=== PATIENT | male | born 1965 | race Two or more races ===

== ENCOUNTER 2023-02-13 11:24 | Inpatient (IN) | payer OTHER ==
[2023-02-13 12:09] VITALS: BMI 29.5
[2023-02-13] MEDS ORDERED: ONDANSETRON *ODT* 4 MG TABLET SL PRN (12:54)
[2023-02-13] MEDS ORDERED: NALOXONE HCL 0.4 MG/ML VIAL IM PRN (12:54)
[2023-02-13] MEDS ORDERED: METHOCARBAMOL 500 MG TABLET PO PRN (12:54)
[2023-02-13] MEDS ORDERED: BENZONATATE 200 MG CAPSULE PO PRN (12:54)
[2023-02-13] MEDS ORDERED: MAG HYDROX/AL HYDROX/SIMETH 30 ML UNIT-DOSE CUP PO PRN (12:54)
[2023-02-13] MEDS ORDERED: ACETAMINOPHEN 325 MG TABLET (FP) PO PRN (12:54)
[2023-02-13] MEDS ORDERED: POLYETHYLENE GLYCOL (HEALTHYLAX) 3350 17 GM PACKET PO PRN (12:54)
[2023-02-13] MEDS ORDERED: guaiFENesin 600 MG TABLET.ER (FP) PO PRN (12:54)
[2023-02-13] MEDS ORDERED: MAGNESIUM HYDROX 2400MG/30ML ORAL SUSPENSION 30 ML CUP PO PRN (12:54)
[2023-02-13] MEDS ORDERED: IBUPROFEN 600 MG TABLET (FP) PO PRN (12:54)
[2023-02-13] MEDS ORDERED: BISMUTH SUBSALICYLATE 524 MG/30 ML PO PRN (12:54)
[2023-02-13] MEDS ORDERED: LOPERAMIDE HCL 2 MG CAPSULE PO PRN (12:54)
[2023-02-13] MEDS ORDERED: BENZOCAINE/MENTHOL (CHLORASEPTIC ) LOZENGE MM PRN (12:54)
[2023-02-13] MEDS ORDERED: NALOXONE HCL (KLOXXADO) 8 MG SPRAY NS PRN (12:54)
[2023-02-13] MEDS ORDERED: DICYCLOMINE HCL 10 MG CAPSULE PO PRN (12:54)
[2023-02-13] MEDS ORDERED: LORazepam 1 MG TABLET PO PRN (12:54)
[2023-02-13] MEDS ORDERED: IBUPROFEN 400 MG TABLET (FP) PO PRN (12:54)
[2023-02-13] MEDS ORDERED: PRENATAL VITAMINS W/ FOLIC ACID TABLET (FP) PO ONE (14:03)
[2023-02-13] MEDS: NICOTINE 14 MG/24 HOURS TOPICAL PATCH TD SCH (14:11)
[2023-02-13] MEDS: PRENATAL VITAMINS W/ FOLIC ACID TABLET (FP) PO SCH (14:12)
[2023-02-13] MEDS: LORazepam 2 MG TABLET PO SCH ×2 (17:22→22:11)
[2023-02-13] MEDS ORDERED: MELATONIN 5 MG TABLETS PO SCH (22:00)
[2023-02-13] MEDS: THIAMINE HCL 100 MG TABLET (FP) PO SCH (22:11)
[2023-02-14] MEDS: LORazepam 2 MG TABLET PO SCH ×4 (05:35→23:34)
[2023-02-14] MEDS: PRENATAL VITAMINS W/ FOLIC ACID TABLET (FP) PO SCH (10:32)
[2023-02-14] MEDS: BUPRENORPHINE/NALOXONE 8 MG/2 MG FILM PACKET SL SCH (10:32)
[2023-02-14] MEDS: NICOTINE 14 MG/24 HOURS TOPICAL PATCH TD SCH (10:33)
[2023-02-14 11:54] LABS: HEMATOCRIT 42.4 % (35.4-49); HEMOGLOBIN 14.5 GM/dL (11.7-16.9); MCHC 34.1 g/dl (32.0-35.9); MEAN CELL VOLUME 93.7 fl (80-96); MEAN PLT VOLUME 9.1 fl (7.5-11.1); PLATELET COUNT 195 10^3/uL (134-434); RBC 4.52 M/mm3 (4.00-5.60); RDW 13.2 % (11.9-15.9); WHITE BLOOD COUNT 6.5 K/mm3 (4.0-10.0)
[2023-02-14 11:58] LABS: POTASSIUM 4.1 mmol/L (3.5-5.1)
[2023-02-14 12:00] LABS: ALBUMIN 3.8 g/dl (3.4-5.0)
[2023-02-14 12:03] LABS: CREATININE 0.9 mg/dL (0.55-1.3)
[2023-02-14 12:05] LABS: BILIRUBIN,TOTAL 1.3 mg/dL (0.2-1); TOT PROT 7.3 g/dl (6.4-8.2)
[2023-02-14] MEDS: hydrOXYzine PAMOATE 25 MG CAPSULE (FP) PO PRN (12:11)
[2023-02-14] MEDS: valACYclovir HCL 500 MG TABLET (FP) PO SCH (14:13)
[2023-02-14] MEDS: BICTEGRAV/EMTRICIT/TENOFOV (BIKTARVY) 50-200-25 MG TABLET PO SCH (14:14)
[2023-02-14] MEDS: THIAMINE HCL 100 MG TABLET (FP) PO SCH (22:06)
[2023-02-14] MEDS: ATORVASTATIN CA 40 MG TABLET (FP) PO SCH (22:08)
[2023-02-14] MEDS: SUVOREXANT 10 MG TABLET PO PRN (22:11)
[2023-02-15] MEDS: LORazepam 1 MG TABLET PO SCH ×4 (05:32→22:13)
[2023-02-15] MEDS: BICTEGRAV/EMTRICIT/TENOFOV (BIKTARVY) 50-200-25 MG TABLET PO SCH (07:39)
[2023-02-15] MEDS: valACYclovir HCL 500 MG TABLET (FP) PO SCH (10:04)
[2023-02-15] MEDS: PRENATAL VITAMINS W/ FOLIC ACID TABLET (FP) PO SCH (10:04)
[2023-02-15] MEDS: NICOTINE 14 MG/24 HOURS TOPICAL PATCH TD SCH (10:04)
[2023-02-15] MEDS: BUPRENORPHINE/NALOXONE 8 MG/2 MG FILM PACKET SL SCH (10:04)
[2023-02-15] MEDS: hydrOXYzine PAMOATE 25 MG CAPSULE (FP) PO PRN (13:00)
[2023-02-15] MEDS: THIAMINE HCL 100 MG TABLET (FP) PO SCH (22:13)
[2023-02-15] MEDS: ATORVASTATIN CA 40 MG TABLET (FP) PO SCH (22:15)
[2023-02-16] MEDS ORDERED: LORazepam 0.5 MG TABLET PO PRN
[2023-02-16] MEDS: LORazepam 0.5 MG TABLET PO SCH ×4 (05:08→22:11)
[2023-02-16] MEDS: BICTEGRAV/EMTRICIT/TENOFOV (BIKTARVY) 50-200-25 MG TABLET PO SCH (07:14)
[2023-02-16] MEDS: valACYclovir HCL 500 MG TABLET (FP) PO SCH (10:01)
[2023-02-16] MEDS: PRENATAL VITAMINS W/ FOLIC ACID TABLET (FP) PO SCH (10:01)
[2023-02-16] MEDS: NICOTINE 14 MG/24 HOURS TOPICAL PATCH TD SCH (10:02)
[2023-02-16] MEDS: BUPRENORPHINE/NALOXONE 8 MG/2 MG FILM PACKET SL SCH (10:04)
[2023-02-16 10:45] LABS: CHOLESTEROL 98 mg/dL (50-200)
[2023-02-16 10:46] LABS: LDL CHOLESTEROL (ONLY SJRH) 53 mg/dL (5-100)
[2023-02-16 10:49] LABS: HDL CHOLESTEROL 35 mg/dL (40-60)
[2023-02-16 21:05] VITALS: RESP 16
[2023-02-16] MEDS: ATORVASTATIN CA 40 MG TABLET (FP) PO SCH (22:11)
[2023-02-16] MEDS: THIAMINE HCL 100 MG TABLET (FP) PO SCH (22:11)
[2023-02-16] MEDS: SUVOREXANT 10 MG TABLET PO PRN (22:13)
[2023-02-17] MEDS ORDERED: LORazepam 0.5 MG TABLET PO ONE (05:00)
[2023-02-17] MEDS: BICTEGRAV/EMTRICIT/TENOFOV (BIKTARVY) 50-200-25 MG TABLET PO SCH (07:53)
[2023-02-17] MEDS: valACYclovir HCL 500 MG TABLET (FP) PO SCH (09:52)
[2023-02-17] MEDS: PRENATAL VITAMINS W/ FOLIC ACID TABLET (FP) PO SCH (09:52)
[2023-02-17] MEDS: NICOTINE 14 MG/24 HOURS TOPICAL PATCH TD SCH (09:53)
[2023-02-17] MEDS: BUPRENORPHINE/NALOXONE 8 MG/2 MG FILM PACKET SL SCH (09:53)
[2023-02-17 09:58] VITALS: BP 108/58; PULSE 63; TEMP 97.1
== END 2023-02-17 09:56 | disposition home or self-care (01) | DRG 773 ==
LOC: YASAS 11:24 → Y6N 14:39
PROVIDERS: ADMIT Allergy & Immunology; ATTEND Surgery
PROC: HZ2ZZZZ Detoxification Services for Substance Abuse Treatment (ICD-10-PCS; principal; 2023-02-13)
DX: F13.230 Sedative, hypnotic or anxiolytic dependence with withdrawal, uncomplicated (principal); F11.20 Opioid dependence, uncomplicated; F12.10 Cannabis abuse, uncomplicated; F17.213 Nicotine dependence, cigarettes, with withdrawal; F19.280 Other psychoactive substance dependence with psychoactive substance-induced anxiety disorder; F19.24 Other psychoactive substance dependence with psychoactive substance-induced mood disorder; I10 Essential (primary) hypertension; E78.2 Mixed hyperlipidemia; Z62.810 Personal history of physical and sexual abuse in childhood; Z86.19 Personal history of other infectious and parasitic diseases; Z86.11 Personal history of tuberculosis; Z87.438 Personal history of other diseases of male genital organs; Z88.0 Allergy status to penicillin
CPT/HCPCS: 36415; 71046-TC-FY; 80053; 80061; 85027; 86593; 86780; 87635; 87811

== ENCOUNTER 2023-04-27 14:03 | Inpatient (IN) | payer OTHER ==
[2023-04-27] MEDS ORDERED: BENZOCAINE/MENTHOL (CHLORASEPTIC ) LOZENGE MM PRN (14:55)
[2023-04-27] MEDS ORDERED: NALOXONE HCL 0.4 MG/ML VIAL IVPUSH PRN (14:55)
[2023-04-27] MEDS ORDERED: BENZONATATE 200 MG CAPSULE PO PRN (14:55)
[2023-04-27] MEDS ORDERED: IBUPROFEN 400 MG TABLET (FP) PO PRN (14:55)
[2023-04-27] MEDS ORDERED: MAGNESIUM HYDROX 2400MG/30ML ORAL SUSPENSION 30 ML CUP PO PRN (14:55)
[2023-04-27] MEDS ORDERED: LOPERAMIDE HCL 2 MG CAPSULE PO PRN (14:55)
[2023-04-27] MEDS ORDERED: POLYETHYLENE GLYCOL (HEALTHYLAX) 3350 17 GM PACKET PO PRN (14:55)
[2023-04-27] MEDS ORDERED: MAG HYDROX/AL HYDROX/SIMETH 30 ML UNIT-DOSE CUP PO PRN (14:55)
[2023-04-27] MEDS ORDERED: guaiFENesin 600 MG TABLET.ER (FP) PO PRN (14:55)
[2023-04-27] MEDS ORDERED: METHOCARBAMOL 500 MG TABLET PO PRN (14:55)
[2023-04-27] MEDS ORDERED: NALOXONE HCL (KLOXXADO) 8 MG SPRAY NS PRN (14:55)
[2023-04-27] MEDS ORDERED: COLLOIDAL OATMEAL 1 BAR EACH TP PRN (14:55)
[2023-04-27] MEDS ORDERED: ACETAMINOPHEN 325 MG TABLET (FP) PO PRN (14:55)
[2023-04-27] MEDS ORDERED: NICOTINE POLACRILEX 2 MG GUM BUC PRN (14:55)
[2023-04-27] MEDS: THIAMINE HCL 100 MG TABLET (FP) PO SCH (21:10)
[2023-04-27] MEDS: MELATONIN 5 MG TABLETS PO SCH (21:10)
[2023-04-27] MEDS: ATORVASTATIN CA 40 MG TABLET (FP) PO SCH (21:10)
[2023-04-28] MEDS: BICTEGRAV/EMTRICIT/TENOFOV (BIKTARVY) 50-200-25 MG TABLET PO SCH (10:18)
[2023-04-28] MEDS: valACYclovir HCL 500 MG TABLET (FP) PO SCH (10:18)
[2023-04-28] MEDS: HYDROCHLOROTHIAZIDE 12.5 MG CAPSULE (FP) PO SCH (10:18)
[2023-04-28] MEDS: PRENATAL VITAMINS W/ FOLIC ACID TABLET (FP) PO SCH (10:18)
[2023-04-28] MEDS: ESCITALOPRAM OXALATE 10 MG TABLET PO SCH (12:05)
[2023-04-28] MEDS: THIAMINE HCL 100 MG TABLET (FP) PO SCH (21:17)
[2023-04-28] MEDS: MELATONIN 5 MG TABLETS PO SCH (21:17)
[2023-04-28] MEDS: MIRTAZAPINE 15 MG TABLET (FP) PO SCH (21:17)
[2023-04-28] MEDS: ATORVASTATIN CA 40 MG TABLET (FP) PO SCH (21:18)
[2023-04-29] MEDS: PRENATAL VITAMINS W/ FOLIC ACID TABLET (FP) PO SCH (09:36)
[2023-04-29] MEDS: BICTEGRAV/EMTRICIT/TENOFOV (BIKTARVY) 50-200-25 MG TABLET PO SCH (09:36)
[2023-04-29] MEDS: HYDROCHLOROTHIAZIDE 12.5 MG CAPSULE (FP) PO SCH (09:37)
[2023-04-29] MEDS: valACYclovir HCL 500 MG TABLET (FP) PO SCH (09:37)
[2023-04-29] MEDS: ESCITALOPRAM OXALATE 10 MG TABLET PO SCH (09:37)
[2023-04-29] MEDS: THIAMINE HCL 100 MG TABLET (FP) PO SCH (21:27)
[2023-04-29] MEDS: MIRTAZAPINE 15 MG TABLET (FP) PO SCH (21:27)
[2023-04-29] MEDS: MELATONIN 5 MG TABLETS PO SCH (21:27)
[2023-04-29] MEDS: ATORVASTATIN CA 40 MG TABLET (FP) PO SCH (21:28)
[2023-04-30] MEDS: PRENATAL VITAMINS W/ FOLIC ACID TABLET (FP) PO SCH (09:57)
[2023-04-30] MEDS: BICTEGRAV/EMTRICIT/TENOFOV (BIKTARVY) 50-200-25 MG TABLET PO SCH (09:57)
[2023-04-30] MEDS: valACYclovir HCL 500 MG TABLET (FP) PO SCH (09:58)
[2023-04-30] MEDS: ESCITALOPRAM OXALATE 10 MG TABLET PO SCH (09:58)
[2023-04-30] MEDS: HYDROCHLOROTHIAZIDE 12.5 MG CAPSULE (FP) PO SCH (09:58)
[2023-04-30] MEDS: MELATONIN 5 MG TABLETS PO SCH (21:09)
[2023-04-30] MEDS: MIRTAZAPINE 15 MG TABLET (FP) PO SCH (21:09)
[2023-04-30] MEDS: ATORVASTATIN CA 40 MG TABLET (FP) PO SCH (21:09)
[2023-04-30] MEDS: THIAMINE HCL 100 MG TABLET (FP) PO SCH (21:09)
[2023-05-01] MEDS: ESCITALOPRAM OXALATE 10 MG TABLET PO SCH (09:29)
[2023-05-01] MEDS: PRENATAL VITAMINS W/ FOLIC ACID TABLET (FP) PO SCH (09:29)
[2023-05-01] MEDS: BICTEGRAV/EMTRICIT/TENOFOV (BIKTARVY) 50-200-25 MG TABLET PO SCH (09:30)
[2023-05-01] MEDS: HYDROCHLOROTHIAZIDE 12.5 MG CAPSULE (FP) PO SCH (09:30)
[2023-05-01] MEDS: valACYclovir HCL 500 MG TABLET (FP) PO SCH (09:30)
[2023-05-01] MEDS ORDERED: guaiFENesin 600 MG TABLET.ER (FP) PO PRN (13:28)
[2023-05-01] MEDS ORDERED: BISMUTH SUBSALICYLATE 524 MG/30 ML PO PRN (13:28)
[2023-05-01] MEDS ORDERED: BENZONATATE 200 MG CAPSULE PO PRN (13:28)
[2023-05-01] MEDS ORDERED: DICYCLOMINE HCL 10 MG CAPSULE PO PRN (13:28)
[2023-05-01] MEDS ORDERED: ONDANSETRON *ODT* 4 MG TABLET SL PRN (13:28)
[2023-05-01] MEDS ORDERED: BUPRENORPHINE HCL 150 MCG FILM BC SCH (14:00)
[2023-05-01] MEDS: ATORVASTATIN CA 40 MG TABLET (FP) PO SCH (21:14)
[2023-05-01] MEDS: THIAMINE HCL 100 MG TABLET (FP) PO SCH (21:14)
[2023-05-01] MEDS: MELATONIN 5 MG TABLETS PO SCH (21:14)
[2023-05-01] MEDS: MIRTAZAPINE 15 MG TABLET (FP) PO SCH (21:14)
[2023-05-01] MEDS: IBUPROFEN 600 MG TABLET (FP) PO PRN (23:14)
[2023-05-02] MEDS: hydrOXYzine PAMOATE 25 MG CAPSULE (FP) PO PRN ×2 (01:24→23:24)
[2023-05-02] MEDS: ESCITALOPRAM OXALATE 10 MG TABLET PO SCH (09:58)
[2023-05-02] MEDS: HYDROCHLOROTHIAZIDE 12.5 MG CAPSULE (FP) PO SCH (09:58)
[2023-05-02] MEDS: PRENATAL VITAMINS W/ FOLIC ACID TABLET (FP) PO SCH (09:58)
[2023-05-02] MEDS: BICTEGRAV/EMTRICIT/TENOFOV (BIKTARVY) 50-200-25 MG TABLET PO SCH (09:58)
[2023-05-02] MEDS: valACYclovir HCL 500 MG TABLET (FP) PO SCH (09:58)
[2023-05-02] MEDS ORDERED: BUPRENORPHINE HCL 150 MCG FILM BC ONE (10:00)
[2023-05-02] MEDS: MELATONIN 5 MG TABLETS PO SCH (21:08)
[2023-05-02] MEDS: MIRTAZAPINE 15 MG TABLET (FP) PO SCH (21:08)
[2023-05-02] MEDS: THIAMINE HCL 100 MG TABLET (FP) PO SCH (21:08)
[2023-05-02] MEDS: ATORVASTATIN CA 40 MG TABLET (FP) PO SCH (21:08)
[2023-05-03] MEDS: PRENATAL VITAMINS W/ FOLIC ACID TABLET (FP) PO SCH (09:36)
[2023-05-03] MEDS: valACYclovir HCL 500 MG TABLET (FP) PO SCH (09:37)
[2023-05-03] MEDS: BUPRENORPHINE HCL 75 MCG FILM BC SCH ×2 (09:37→21:24)
[2023-05-03] MEDS: HYDROCHLOROTHIAZIDE 12.5 MG CAPSULE (FP) PO SCH (09:37)
[2023-05-03] MEDS: BICTEGRAV/EMTRICIT/TENOFOV (BIKTARVY) 50-200-25 MG TABLET PO SCH (09:37)
[2023-05-03] MEDS: ESCITALOPRAM OXALATE 10 MG TABLET PO SCH (09:37)
[2023-05-03] MEDS: ATORVASTATIN CA 40 MG TABLET (FP) PO SCH (21:23)
[2023-05-03] MEDS: MELATONIN 5 MG TABLETS PO SCH (21:23)
[2023-05-03] MEDS: THIAMINE HCL 100 MG TABLET (FP) PO SCH (21:23)
[2023-05-03] MEDS: MIRTAZAPINE 15 MG TABLET (FP) PO SCH (21:23)
[2023-05-04] MEDS: HYDROCHLOROTHIAZIDE 12.5 MG CAPSULE (FP) PO SCH (10:05)
[2023-05-04] MEDS: valACYclovir HCL 500 MG TABLET (FP) PO SCH (10:05)
[2023-05-04] MEDS: PRENATAL VITAMINS W/ FOLIC ACID TABLET (FP) PO SCH (10:05)
[2023-05-04] MEDS: BICTEGRAV/EMTRICIT/TENOFOV (BIKTARVY) 50-200-25 MG TABLET PO SCH (10:05)
[2023-05-04] MEDS: ESCITALOPRAM OXALATE 10 MG TABLET PO SCH (10:05)
[2023-05-04] MEDS: THIAMINE HCL 100 MG TABLET (FP) PO SCH (21:11)
[2023-05-04] MEDS: MIRTAZAPINE 15 MG TABLET (FP) PO SCH (21:11)
[2023-05-04] MEDS: ATORVASTATIN CA 40 MG TABLET (FP) PO SCH (21:11)
[2023-05-04] MEDS: MELATONIN 5 MG TABLETS PO SCH (21:11)
[2023-05-04] MEDS ORDERED: BUPRENORPHINE HCL 75 MCG FILM BC ONE (23:00)
[2023-05-05] MEDS: PRENATAL VITAMINS W/ FOLIC ACID TABLET (FP) PO SCH (09:48)
[2023-05-05] MEDS: BICTEGRAV/EMTRICIT/TENOFOV (BIKTARVY) 50-200-25 MG TABLET PO SCH (09:49)
[2023-05-05] MEDS: valACYclovir HCL 500 MG TABLET (FP) PO SCH (09:49)
[2023-05-05] MEDS: ESCITALOPRAM OXALATE 10 MG TABLET PO SCH (09:49)
[2023-05-05] MEDS: HYDROCHLOROTHIAZIDE 12.5 MG CAPSULE (FP) PO SCH (09:49)
[2023-05-05] MEDS: THIAMINE HCL 100 MG TABLET (FP) PO SCH (21:14)
[2023-05-05] MEDS: MELATONIN 5 MG TABLETS PO SCH (21:14)
[2023-05-05] MEDS: ATORVASTATIN CA 40 MG TABLET (FP) PO SCH (21:14)
[2023-05-05] MEDS: MIRTAZAPINE 15 MG TABLET (FP) PO SCH (21:14)
[2023-05-06] MEDS: HYDROCHLOROTHIAZIDE 12.5 MG CAPSULE (FP) PO SCH (09:52)
[2023-05-06] MEDS: PRENATAL VITAMINS W/ FOLIC ACID TABLET (FP) PO SCH (09:52)
[2023-05-06] MEDS: ESCITALOPRAM OXALATE 10 MG TABLET PO SCH (09:52)
[2023-05-06] MEDS: valACYclovir HCL 500 MG TABLET (FP) PO SCH (09:52)
[2023-05-06] MEDS: BICTEGRAV/EMTRICIT/TENOFOV (BIKTARVY) 50-200-25 MG TABLET PO SCH (09:52)
[2023-05-06] MEDS: ATORVASTATIN CA 40 MG TABLET (FP) PO SCH (21:21)
[2023-05-06] MEDS: MELATONIN 5 MG TABLETS PO SCH (21:21)
[2023-05-06] MEDS: MIRTAZAPINE 15 MG TABLET (FP) PO SCH (21:21)
[2023-05-06] MEDS: THIAMINE HCL 100 MG TABLET (FP) PO SCH (21:21)
[2023-05-07] MEDS: IBUPROFEN 600 MG TABLET (FP) PO PRN (00:02)
[2023-05-07] MEDS: hydrOXYzine PAMOATE 25 MG CAPSULE (FP) PO PRN (00:04)
[2023-05-07] MEDS: valACYclovir HCL 500 MG TABLET (FP) PO SCH (09:54)
[2023-05-07] MEDS: PRENATAL VITAMINS W/ FOLIC ACID TABLET (FP) PO SCH (09:55)
[2023-05-07] MEDS: ESCITALOPRAM OXALATE 10 MG TABLET PO SCH (09:55)
[2023-05-07] MEDS: HYDROCHLOROTHIAZIDE 12.5 MG CAPSULE (FP) PO SCH (09:55)
[2023-05-07] MEDS: BICTEGRAV/EMTRICIT/TENOFOV (BIKTARVY) 50-200-25 MG TABLET PO SCH (09:55)
[2023-05-07] MEDS: ATORVASTATIN CA 40 MG TABLET (FP) PO SCH (21:08)
[2023-05-07] MEDS: MELATONIN 5 MG TABLETS PO SCH (21:08)
[2023-05-07] MEDS: MIRTAZAPINE 15 MG TABLET (FP) PO SCH (21:08)
[2023-05-07] MEDS: THIAMINE HCL 100 MG TABLET (FP) PO SCH (21:08)
[2023-05-08] MEDS: BICTEGRAV/EMTRICIT/TENOFOV (BIKTARVY) 50-200-25 MG TABLET PO SCH (10:10)
[2023-05-08] MEDS: PRENATAL VITAMINS W/ FOLIC ACID TABLET (FP) PO SCH (10:10)
[2023-05-08] MEDS: valACYclovir HCL 500 MG TABLET (FP) PO SCH (10:10)
[2023-05-08] MEDS: ESCITALOPRAM OXALATE 10 MG TABLET PO SCH (10:10)
[2023-05-08] MEDS: HYDROCHLOROTHIAZIDE 12.5 MG CAPSULE (FP) PO SCH (10:10)
[2023-05-08] MEDS: IBUPROFEN 600 MG TABLET (FP) PO PRN (10:12)
[2023-05-08] MEDS: LIDOCAINE 4% PATCH TP SCH (12:10)
[2023-05-08] MEDS: BACLOFEN 10 MG TABLET (FP) PO SCH ×2 (13:57→21:15)
[2023-05-08] MEDS: ATORVASTATIN CA 40 MG TABLET (FP) PO SCH (21:15)
[2023-05-08] MEDS: MELATONIN 5 MG TABLETS PO SCH (21:15)
[2023-05-08] MEDS: METHYL SALICYLATE/MENTHOL OINT 30 GM TUBE TP SCH (21:15)
[2023-05-08] MEDS: LIDOCAINE PATCH REMOVAL MC SCH (21:15)
[2023-05-08] MEDS: MIRTAZAPINE 15 MG TABLET (FP) PO SCH (21:15)
[2023-05-08] MEDS: THIAMINE HCL 100 MG TABLET (FP) PO SCH (21:20)
[2023-05-09] MEDS: BACLOFEN 10 MG TABLET (FP) PO SCH ×3 (06:23→21:11)
[2023-05-09] MEDS: PRENATAL VITAMINS W/ FOLIC ACID TABLET (FP) PO SCH (10:08)
[2023-05-09] MEDS: valACYclovir HCL 500 MG TABLET (FP) PO SCH (10:08)
[2023-05-09] MEDS: HYDROCHLOROTHIAZIDE 12.5 MG CAPSULE (FP) PO SCH (10:08)
[2023-05-09] MEDS: ESCITALOPRAM OXALATE 10 MG TABLET PO SCH (10:08)
[2023-05-09] MEDS: BICTEGRAV/EMTRICIT/TENOFOV (BIKTARVY) 50-200-25 MG TABLET PO SCH (10:08)
[2023-05-09] MEDS: METHYL SALICYLATE/MENTHOL OINT 30 GM TUBE TP SCH ×2 (10:09→21:11)
[2023-05-09] MEDS: LIDOCAINE 4% PATCH TP SCH (10:09)
[2023-05-09] MEDS: LIDOCAINE PATCH REMOVAL MC SCH (21:11)
[2023-05-09] MEDS: THIAMINE HCL 100 MG TABLET (FP) PO SCH (21:11)
[2023-05-09] MEDS: ATORVASTATIN CA 40 MG TABLET (FP) PO SCH (21:11)
[2023-05-09] MEDS: MIRTAZAPINE 15 MG TABLET (FP) PO SCH (21:11)
[2023-05-09] MEDS: MELATONIN 5 MG TABLETS PO SCH (21:11)
[2023-05-10] MEDS: BACLOFEN 10 MG TABLET (FP) PO SCH ×3 (06:26→21:12)
[2023-05-10] MEDS: PRENATAL VITAMINS W/ FOLIC ACID TABLET (FP) PO SCH (10:13)
[2023-05-10] MEDS: HYDROCHLOROTHIAZIDE 12.5 MG CAPSULE (FP) PO SCH (10:14)
[2023-05-10] MEDS: METHYL SALICYLATE/MENTHOL OINT 30 GM TUBE TP SCH ×2 (10:14→21:12)
[2023-05-10] MEDS: LIDOCAINE 4% PATCH TP SCH (10:14)
[2023-05-10] MEDS: ESCITALOPRAM OXALATE 10 MG TABLET PO SCH (10:14)
[2023-05-10] MEDS: BICTEGRAV/EMTRICIT/TENOFOV (BIKTARVY) 50-200-25 MG TABLET PO SCH (10:14)
[2023-05-10] MEDS: valACYclovir HCL 500 MG TABLET (FP) PO SCH (10:14)
[2023-05-10] MEDS: MELATONIN 5 MG TABLETS PO SCH (21:12)
[2023-05-10] MEDS: LIDOCAINE PATCH REMOVAL MC SCH (21:12)
[2023-05-10] MEDS: ATORVASTATIN CA 40 MG TABLET (FP) PO SCH (21:12)
[2023-05-10] MEDS: MIRTAZAPINE 15 MG TABLET (FP) PO SCH (21:12)
[2023-05-10] MEDS: THIAMINE HCL 100 MG TABLET (FP) PO SCH (21:12)
[2023-05-10] MEDS ORDERED: TUBERCULIN PPD 5 TU/0.1ML VIAL ID ONE (23:22)
[2023-05-11] MEDS: BACLOFEN 10 MG TABLET (FP) PO SCH ×3 (06:36→21:05)
[2023-05-11] MEDS: PRENATAL VITAMINS W/ FOLIC ACID TABLET (FP) PO SCH (09:44)
[2023-05-11] MEDS: HYDROCHLOROTHIAZIDE 12.5 MG CAPSULE (FP) PO SCH (09:45)
[2023-05-11] MEDS: ESCITALOPRAM OXALATE 10 MG TABLET PO SCH (09:45)
[2023-05-11] MEDS: METHYL SALICYLATE/MENTHOL OINT 30 GM TUBE TP SCH ×2 (09:45→21:05)
[2023-05-11] MEDS: BICTEGRAV/EMTRICIT/TENOFOV (BIKTARVY) 50-200-25 MG TABLET PO SCH (09:45)
[2023-05-11] MEDS: valACYclovir HCL 500 MG TABLET (FP) PO SCH (09:45)
[2023-05-11] MEDS: LIDOCAINE 4% PATCH TP SCH (09:46)
[2023-05-11] MEDS: THIAMINE HCL 100 MG TABLET (FP) PO SCH (21:05)
[2023-05-11] MEDS: ATORVASTATIN CA 40 MG TABLET (FP) PO SCH (21:05)
[2023-05-11] MEDS: LIDOCAINE PATCH REMOVAL MC SCH (21:05)
[2023-05-11] MEDS: MIRTAZAPINE 15 MG TABLET (FP) PO SCH (21:05)
[2023-05-11] MEDS: MELATONIN 5 MG TABLETS PO SCH (21:06)
[2023-05-12] MEDS: BACLOFEN 10 MG TABLET (FP) PO SCH ×3 (06:09→21:07)
[2023-05-12] MEDS: PRENATAL VITAMINS W/ FOLIC ACID TABLET (FP) PO SCH (09:33)
[2023-05-12] MEDS: HYDROCHLOROTHIAZIDE 12.5 MG CAPSULE (FP) PO SCH (09:34)
[2023-05-12] MEDS: BICTEGRAV/EMTRICIT/TENOFOV (BIKTARVY) 50-200-25 MG TABLET PO SCH (09:34)
[2023-05-12] MEDS: ESCITALOPRAM OXALATE 10 MG TABLET PO SCH (09:35)
[2023-05-12] MEDS: LIDOCAINE 4% PATCH TP SCH (09:35)
[2023-05-12] MEDS: valACYclovir HCL 500 MG TABLET (FP) PO SCH (09:35)
[2023-05-12] MEDS: METHYL SALICYLATE/MENTHOL OINT 30 GM TUBE TP SCH ×2 (09:35→21:08)
[2023-05-12] MEDS: ATORVASTATIN CA 40 MG TABLET (FP) PO SCH (21:07)
[2023-05-12] MEDS: MELATONIN 5 MG TABLETS PO SCH (21:08)
[2023-05-12] MEDS: LIDOCAINE PATCH REMOVAL MC SCH (21:08)
[2023-05-12] MEDS: THIAMINE HCL 100 MG TABLET (FP) PO SCH (21:08)
[2023-05-12] MEDS: MIRTAZAPINE 15 MG TABLET (FP) PO SCH (21:08)
[2023-05-13] MEDS: BACLOFEN 10 MG TABLET (FP) PO SCH ×3 (05:58→21:07)
[2023-05-13] MEDS: ESCITALOPRAM OXALATE 10 MG TABLET PO SCH (09:48)
[2023-05-13] MEDS: valACYclovir HCL 500 MG TABLET (FP) PO SCH (09:48)
[2023-05-13] MEDS: PRENATAL VITAMINS W/ FOLIC ACID TABLET (FP) PO SCH (09:48)
[2023-05-13] MEDS: HYDROCHLOROTHIAZIDE 12.5 MG CAPSULE (FP) PO SCH (09:48)
[2023-05-13] MEDS: BICTEGRAV/EMTRICIT/TENOFOV (BIKTARVY) 50-200-25 MG TABLET PO SCH (09:48)
[2023-05-13] MEDS: LIDOCAINE 4% PATCH TP SCH (09:49)
[2023-05-13] MEDS: METHYL SALICYLATE/MENTHOL OINT 30 GM TUBE TP SCH ×2 (09:49→21:08)
[2023-05-13] MEDS: ATORVASTATIN CA 40 MG TABLET (FP) PO SCH (21:07)
[2023-05-13] MEDS: MIRTAZAPINE 15 MG TABLET (FP) PO SCH (21:07)
[2023-05-13] MEDS: MELATONIN 5 MG TABLETS PO SCH (21:07)
[2023-05-13] MEDS: THIAMINE HCL 100 MG TABLET (FP) PO SCH (21:07)
[2023-05-13] MEDS: LIDOCAINE PATCH REMOVAL MC SCH (21:08)
[2023-05-14] MEDS: BACLOFEN 10 MG TABLET (FP) PO SCH (06:15)
[2023-05-14 07:03] VITALS: BP 128/75; PULSE 55; RESP 16; TEMP 96.8
[2023-05-14] MEDS: BICTEGRAV/EMTRICIT/TENOFOV (BIKTARVY) 50-200-25 MG TABLET PO SCH (09:02)
[2023-05-14] MEDS: ESCITALOPRAM OXALATE 10 MG TABLET PO SCH (09:02)
[2023-05-14] MEDS: HYDROCHLOROTHIAZIDE 12.5 MG CAPSULE (FP) PO SCH (09:02)
[2023-05-14] MEDS: valACYclovir HCL 500 MG TABLET (FP) PO SCH (09:02)
[2023-05-14] MEDS: METHYL SALICYLATE/MENTHOL OINT 30 GM TUBE TP SCH (09:03)
[2023-05-14] MEDS: LIDOCAINE 4% PATCH TP SCH (09:03)
[2023-05-14] MEDS: PRENATAL VITAMINS W/ FOLIC ACID TABLET (FP) PO SCH (09:03)
== END 2023-05-14 09:09 | disposition home or self-care (01) | DRG 772 ==
LOC: YASAS 14:03 → Y3W 14:05
PROVIDERS: ADMIT Allergy & Immunology; ATTEND Psychiatry & Neurology Pain Medicine
PROC: HZ42ZZZ Group Counseling for Substance Abuse Treatment, Cognitive-Behavioral (ICD-10-PCS; principal; 2023-04-27)
DX: F11.20 Opioid dependence, uncomplicated (principal); F13.20 Sedative, hypnotic or anxiolytic dependence, uncomplicated; F17.210 Nicotine dependence, cigarettes, uncomplicated; F19.282 Other psychoactive substance dependence with psychoactive substance-induced sleep disorder; F19.24 Other psychoactive substance dependence with psychoactive substance-induced mood disorder; F41.9 Anxiety disorder, unspecified; F32.A Depression, unspecified; Z21 Asymptomatic human immunodeficiency virus [HIV] infection status; I10 Essential (primary) hypertension; E78.5 Hyperlipidemia, unspecified; A60.00 Herpesviral infection of urogenital system, unspecified; M54.50 Low back pain, unspecified; G89.29 Other chronic pain; Z86.11 Personal history of tuberculosis; Z86.19 Personal history of other infectious and parasitic diseases
CPT/HCPCS: 36415; 86803; 87522; J0475

== ENCOUNTER 2023-05-29 14:08 | Inpatient (IN) | payer OTHER ==
[2023-05-29 14:52] VITALS: BMI 30.2
[2023-05-29] MEDS ORDERED: NALOXONE HCL 0.4 MG/ML VIAL IM PRN (15:32)
[2023-05-29] MEDS ORDERED: NICOTINE POLACRILEX 2 MG GUM BUC PRN (15:32)
[2023-05-29] MEDS ORDERED: POLYETHYLENE GLYCOL (HEALTHYLAX) 3350 17 GM PACKET PO PRN (15:32)
[2023-05-29] MEDS ORDERED: BENZONATATE 200 MG CAPSULE PO PRN (15:32)
[2023-05-29] MEDS ORDERED: BISMUTH SUBSALICYLATE 524 MG/30 ML PO PRN (15:32)
[2023-05-29] MEDS ORDERED: IBUPROFEN 400 MG TABLET (FP) PO PRN (15:32)
[2023-05-29] MEDS ORDERED: MAG HYDROX/AL HYDROX/SIMETH 30 ML UNIT-DOSE CUP PO PRN (15:32)
[2023-05-29] MEDS ORDERED: ONDANSETRON *ODT* 4 MG TABLET SL PRN (15:32)
[2023-05-29] MEDS ORDERED: ACETAMINOPHEN 325 MG TABLET (FP) PO PRN (15:32)
[2023-05-29] MEDS ORDERED: guaiFENesin 600 MG TABLET.ER (FP) PO PRN (15:32)
[2023-05-29] MEDS ORDERED: IBUPROFEN 600 MG TABLET (FP) PO PRN (15:32)
[2023-05-29] MEDS ORDERED: NALOXONE HCL (KLOXXADO) 8 MG SPRAY NS PRN (15:32)
[2023-05-29] MEDS ORDERED: LOPERAMIDE HCL 2 MG CAPSULE PO PRN (15:32)
[2023-05-29] MEDS ORDERED: MAGNESIUM HYDROX 2400MG/30ML ORAL SUSPENSION 30 ML CUP PO PRN (15:32)
[2023-05-29] MEDS ORDERED: BENZOCAINE/MENTHOL (CHLORASEPTIC ) LOZENGE MM PRN (15:32)
[2023-05-29] MEDS ORDERED: cloNIDine HCL 0.1 MG TABLET PO PRN (15:44)
[2023-05-29] MEDS ORDERED: diazePAM 5 MG TABLET PO PRN (15:44)
[2023-05-29] MEDS ORDERED: methaDONE HCL 10 MG TABLET (FOR DETOX USE ONLY) PO ONE (15:44)
[2023-05-29] MEDS: diazePAM 5 MG TABLET PO SCH ×2 (16:08→22:14)
[2023-05-29] MEDS ORDERED: diazePAM 5 MG TABLET ONE (16:11)
[2023-05-29] MEDS ORDERED: methaDONE HCL 10 MG TABLET (FOR DETOX USE ONLY) ONE (16:12)
[2023-05-29] MEDS: MELATONIN 5 MG TABLETS PO SCH (22:14)
[2023-05-29] MEDS: THIAMINE HCL 100 MG TABLET (FP) PO SCH (22:14)
[2023-05-30] MEDS: diazePAM 5 MG TABLET PO SCH ×4 (05:13→22:06)
[2023-05-30] MEDS: PRENATAL VITAMINS W/ FOLIC ACID TABLET (FP) PO SCH (10:15)
[2023-05-30] MEDS: NICOTINE 14 MG/24 HOURS TOPICAL PATCH TD SCH (10:15)
[2023-05-30 11:06] LABS: HEMATOCRIT 39.7 % (35.4-49); HEMOGLOBIN 13.4 GM/dL (11.7-16.9); MCH 32.2 pg (25.7-33.7); MCHC 33.8 g/dl (32.0-35.9); MEAN CELL VOLUME 95.2 fl (80-96); PLATELET COUNT 217 10^3/uL (134-434); RBC 4.17 M/mm3 (4.00-5.60); RDW 13.9 % (11.9-15.9); WHITE BLOOD COUNT 5.7 K/mm3 (4.0-10.0)
[2023-05-30 11:10] LABS: CHLORIDE 104 mmol/L (98-107); SODIUM 138 mmol/L (136-145)
[2023-05-30 11:13] LABS: ALBUMIN 3.1 g/dl (3.4-5.0); ANION GAP 6 mmol/L (4-13); CALCIUM 8.8 mg/dL (8.5-10.1); CO2 29 mmol/L (21-32)
[2023-05-30 11:14] LABS: GLUCOSE,RANDOM 93 mg/dL (74-106)
[2023-05-30 11:16] LABS: CREATININE 0.8 mg/dL (0.55-1.3); SGOT/AST 24 U/L (15-37)
[2023-05-30 11:17] LABS: SGPT/ALT 28 U/L (13-61)
[2023-05-30 11:18] LABS: TOT PROT 6.5 g/dl (6.4-8.2)
[2023-05-30 11:19] LABS: ALK PHOS 74 U/L (45-117)
[2023-05-30] MEDS: THIAMINE HCL 100 MG TABLET (FP) PO SCH (22:05)
[2023-05-30] MEDS: hydrOXYzine PAMOATE 25 MG CAPSULE (FP) PO PRN (22:05)
[2023-05-30] MEDS: MELATONIN 5 MG TABLETS PO SCH (22:05)
[2023-05-30] MEDS: METHOCARBAMOL 500 MG TABLET PO PRN (22:06)
[2023-05-31] MEDS: diazePAM 5 MG TABLET PO SCH ×3 (05:20→22:08)
[2023-05-31] MEDS: METHOCARBAMOL 500 MG TABLET PO PRN (09:43)
[2023-05-31] MEDS: NICOTINE 14 MG/24 HOURS TOPICAL PATCH TD SCH (09:44)
[2023-05-31] MEDS: PRENATAL VITAMINS W/ FOLIC ACID TABLET (FP) PO SCH (09:44)
[2023-05-31] MEDS ORDERED: methaDONE HCL 10 MG TABLET (FOR DETOX USE ONLY) PO ONE (10:00)
[2023-05-31] MEDS: THIAMINE HCL 100 MG TABLET (FP) PO SCH (22:08)
[2023-05-31] MEDS: MELATONIN 5 MG TABLETS PO SCH (22:08)
[2023-06-01] MEDS: diazePAM 5 MG TABLET PO SCH ×2 (05:16→17:16)
[2023-06-01] MEDS: PRENATAL VITAMINS W/ FOLIC ACID TABLET (FP) PO SCH (10:13)
[2023-06-01] MEDS: NICOTINE 14 MG/24 HOURS TOPICAL PATCH TD SCH (10:14)
[2023-06-01] MEDS: THIAMINE HCL 100 MG TABLET (FP) PO SCH (22:17)
[2023-06-01] MEDS: METHOCARBAMOL 500 MG TABLET PO PRN (22:17)
[2023-06-01] MEDS: MELATONIN 5 MG TABLETS PO SCH (22:17)
[2023-06-01] MEDS: hydrOXYzine PAMOATE 25 MG CAPSULE (FP) PO PRN (22:18)
[2023-06-02] MEDS ORDERED: diazePAM 5 MG TABLET PO ONE (06:00)
[2023-06-02] MEDS ORDERED: methaDONE HCL 10 MG TABLET (FOR DETOX USE ONLY) PO ONE (10:00)
[2023-06-02] MEDS: PRENATAL VITAMINS W/ FOLIC ACID TABLET (FP) PO SCH (10:04)
[2023-06-02] MEDS: NICOTINE 14 MG/24 HOURS TOPICAL PATCH TD SCH (10:05)
[2023-06-02] MEDS: MELATONIN 5 MG TABLETS PO SCH (22:49)
[2023-06-02] MEDS: THIAMINE HCL 100 MG TABLET (FP) PO SCH (22:49)
[2023-06-03] MEDS: PRENATAL VITAMINS W/ FOLIC ACID TABLET (FP) PO SCH (10:15)
[2023-06-03] MEDS: NICOTINE 14 MG/24 HOURS TOPICAL PATCH TD SCH (10:16)
[2023-06-03] MEDS ORDERED: valACYclovir HCL 500 MG TABLET (FP) PO SCH (12:45)
[2023-06-03] MEDS ORDERED: BICTEGRAV/EMTRICIT/TENOFOV (BIKTARVY) 50-200-25 MG TABLET PO SCH (12:45)
[2023-06-03 12:58] VITALS: BP 160/60; PULSE 60; RESP 20; TEMP 98.1
[2023-06-03] MEDS ORDERED: LISINOPRIL 10 MG TABLET PO SCH (13:00)
[2023-06-03] MEDS ORDERED: HYDROCHLOROTHIAZIDE 12.5 MG CAPSULE (FP) PO SCH (13:00)
[2023-06-03] MEDS ORDERED: ATORVASTATIN CA 40 MG TABLET (FP) PO SCH (22:00)
== END 2023-06-03 16:52 | disposition other institution (70) | DRG 773 ==
LOC: YASAS 14:08 → Y3N 17:40
PROVIDERS: ADMIT Allergy & Immunology; ATTEND Surgery
PROC: HZ2ZZZZ Detoxification Services for Substance Abuse Treatment (ICD-10-PCS; principal; 2023-05-29)
DX: F11.23 Opioid dependence with withdrawal (principal); F13.230 Sedative, hypnotic or anxiolytic dependence with withdrawal, uncomplicated; F17.210 Nicotine dependence, cigarettes, uncomplicated; F32.A Depression, unspecified; Z21 Asymptomatic human immunodeficiency virus [HIV] infection status; I10 Essential (primary) hypertension; E78.2 Mixed hyperlipidemia; Z62.810 Personal history of physical and sexual abuse in childhood; Z86.11 Personal history of tuberculosis; Z86.19 Personal history of other infectious and parasitic diseases
CPT/HCPCS: 36415; 80053; 80307; 85027; 86593; 86780; 87635

== ENCOUNTER 2023-06-03 17:15 | Inpatient (IN) | payer OTHER ==
[2023-06-03] MEDS ORDERED: NALOXONE HCL 0.4 MG/ML VIAL IVPUSH PRN (18:08)
[2023-06-03] MEDS ORDERED: LOPERAMIDE HCL 2 MG CAPSULE PO PRN (18:08)
[2023-06-03] MEDS ORDERED: IBUPROFEN 400 MG TABLET (FP) PO PRN (18:08)
[2023-06-03] MEDS ORDERED: POLYETHYLENE GLYCOL (HEALTHYLAX) 3350 17 GM PACKET PO PRN (18:08)
[2023-06-03] MEDS ORDERED: COLLOIDAL OATMEAL 1 BAR EACH TP PRN (18:08)
[2023-06-03] MEDS ORDERED: NALOXONE HCL (KLOXXADO) 8 MG SPRAY NS PRN (18:08)
[2023-06-03] MEDS ORDERED: BENZONATATE 200 MG CAPSULE PO PRN (18:08)
[2023-06-03] MEDS ORDERED: ACETAMINOPHEN 325 MG TABLET (FP) PO PRN (18:08)
[2023-06-03] MEDS ORDERED: BENZOCAINE/MENTHOL (CHLORASEPTIC ) LOZENGE MM PRN (18:08)
[2023-06-03] MEDS ORDERED: MAG HYDROX/AL HYDROX/SIMETH 30 ML UNIT-DOSE CUP PO PRN (18:08)
[2023-06-03] MEDS ORDERED: NICOTINE POLACRILEX 2 MG GUM BUC PRN (18:08)
[2023-06-03] MEDS ORDERED: guaiFENesin 600 MG TABLET.ER (FP) PO PRN (18:08)
[2023-06-03] MEDS ORDERED: MAGNESIUM HYDROX 2400MG/30ML ORAL SUSPENSION 30 ML CUP PO PRN (18:08)
[2023-06-03] MEDS ORDERED: P-EPHED 60MG/TRIPROLIDI 2.5MG TABLET PO PRN (18:08)
[2023-06-03] MEDS: THIAMINE HCL 100 MG TABLET (FP) PO SCH (21:21)
[2023-06-03] MEDS: MELATONIN 5 MG TABLETS PO SCH (21:21)
[2023-06-04] MEDS: PRENATAL VITAMINS W/ FOLIC ACID TABLET (FP) PO SCH (10:09)
[2023-06-04] MEDS: IBUPROFEN 600 MG TABLET (FP) PO PRN (10:10)
[2023-06-04] MEDS: THIAMINE HCL 100 MG TABLET (FP) PO SCH (21:27)
[2023-06-04] MEDS: MELATONIN 5 MG TABLETS PO SCH (21:27)
[2023-06-05] MEDS: PRENATAL VITAMINS W/ FOLIC ACID TABLET (FP) PO SCH (09:47)
[2023-06-05] MEDS: METHOCARBAMOL 500 MG TABLET PO PRN ×2 (10:47→21:50)
[2023-06-05] MEDS: IBUPROFEN 600 MG TABLET (FP) PO PRN (10:47)
[2023-06-05] MEDS: MELATONIN 5 MG TABLETS PO SCH (21:50)
[2023-06-05] MEDS: THIAMINE HCL 100 MG TABLET (FP) PO SCH (21:50)
[2023-06-05] MEDS: hydrOXYzine PAMOATE 25 MG CAPSULE (FP) PO PRN (21:50)
[2023-06-06] MEDS: PRENATAL VITAMINS W/ FOLIC ACID TABLET (FP) PO SCH (10:23)
[2023-06-06] MEDS: valACYclovir HCL 500 MG TABLET (FP) PO SCH (11:50)
[2023-06-06] MEDS: HYDROCHLOROTHIAZIDE 12.5 MG CAPSULE (FP) PO SCH (11:50)
[2023-06-06] MEDS: BICTEGRAV/EMTRICIT/TENOFOV (BIKTARVY) 50-200-25 MG TABLET PO SCH (11:50)
[2023-06-06] MEDS: ESCITALOPRAM OXALATE 10 MG TABLET PO SCH (11:50)
[2023-06-06] MEDS: LISINOPRIL 10 MG TABLET PO SCH (11:51)
[2023-06-06] MEDS: MIRTAZAPINE 15 MG TABLET (FP) PO SCH (21:23)
[2023-06-06] MEDS: METHOCARBAMOL 500 MG TABLET PO PRN (21:23)
[2023-06-06] MEDS: THIAMINE HCL 100 MG TABLET (FP) PO SCH (21:23)
[2023-06-06] MEDS: MELATONIN 5 MG TABLETS PO SCH (21:23)
[2023-06-06] MEDS: hydrOXYzine PAMOATE 25 MG CAPSULE (FP) PO PRN (21:23)
[2023-06-06] MEDS: ATORVASTATIN CA 40 MG TABLET (FP) PO SCH (21:23)
[2023-06-06] MEDS: IBUPROFEN 600 MG TABLET (FP) PO PRN (23:04)
[2023-06-07] MEDS ORDERED: hydrOXYzine PAMOATE 25 MG CAPSULE (FP) PO ONE (02:21)
[2023-06-07] MEDS: IBUPROFEN 600 MG TABLET (FP) PO PRN ×2 (06:20→14:19)
[2023-06-07] MEDS: METHOCARBAMOL 500 MG TABLET PO PRN ×3 (06:21→21:14)
[2023-06-07] MEDS: BICTEGRAV/EMTRICIT/TENOFOV (BIKTARVY) 50-200-25 MG TABLET PO SCH (07:23)
[2023-06-07] MEDS: PRENATAL VITAMINS W/ FOLIC ACID TABLET (FP) PO SCH (10:17)
[2023-06-07] MEDS: LISINOPRIL 10 MG TABLET PO SCH (10:17)
[2023-06-07] MEDS: valACYclovir HCL 500 MG TABLET (FP) PO SCH (10:17)
[2023-06-07] MEDS: HYDROCHLOROTHIAZIDE 12.5 MG CAPSULE (FP) PO SCH (10:17)
[2023-06-07] MEDS: ESCITALOPRAM OXALATE 10 MG TABLET PO SCH (10:17)
[2023-06-07] MEDS: hydrOXYzine PAMOATE 25 MG CAPSULE (FP) PO PRN (10:20)
[2023-06-07] MEDS ORDERED: cloNIDine HCL 0.1 MG TABLET PO ONE (11:30)
[2023-06-07] MEDS ORDERED: BUPRENORPHINE HCL 75 MCG FILM BC SCH (14:00)
[2023-06-07] MEDS: BUPRENORPHINE/NALOXONE 2 MG/0.5 MG FILM PACKET SL SCH (16:21)
[2023-06-07] MEDS: MELATONIN 5 MG TABLETS PO SCH (21:14)
[2023-06-07] MEDS: MIRTAZAPINE 15 MG TABLET (FP) PO SCH (21:14)
[2023-06-07] MEDS: ATORVASTATIN CA 40 MG TABLET (FP) PO SCH (21:14)
[2023-06-07] MEDS: THIAMINE HCL 100 MG TABLET (FP) PO SCH (21:14)
[2023-06-07] MEDS: cloNIDine HCL 0.1 MG TABLET PO PRN (21:16)
[2023-06-08] MEDS: hydrOXYzine PAMOATE 25 MG CAPSULE (FP) PO PRN ×2 (00:36→18:26)
[2023-06-08] MEDS: BICTEGRAV/EMTRICIT/TENOFOV (BIKTARVY) 50-200-25 MG TABLET PO SCH (07:28)
[2023-06-08] MEDS: HYDROCHLOROTHIAZIDE 25 MG TABLET (FP) PO SCH (09:32)
[2023-06-08] MEDS: LISINOPRIL 10 MG TABLET PO SCH (09:32)
[2023-06-08] MEDS: valACYclovir HCL 500 MG TABLET (FP) PO SCH (09:32)
[2023-06-08] MEDS: ESCITALOPRAM OXALATE 10 MG TABLET PO SCH (09:32)
[2023-06-08] MEDS: PRENATAL VITAMINS W/ FOLIC ACID TABLET (FP) PO SCH (09:32)
[2023-06-08] MEDS: BUPRENORPHINE/NALOXONE 2 MG/0.5 MG FILM PACKET SL SCH (09:33)
[2023-06-08] MEDS ORDERED: HYDROCHLOROTHIAZIDE 25 MG TABLET (FP) PO SCH (11:00)
[2023-06-08] MEDS: cloNIDine HCL 0.1 MG TABLET PO PRN (18:26)
[2023-06-08] MEDS: METHOCARBAMOL 500 MG TABLET PO PRN (21:12)
[2023-06-08] MEDS: MELATONIN 5 MG TABLETS PO SCH (21:12)
[2023-06-08] MEDS: ATORVASTATIN CA 40 MG TABLET (FP) PO SCH (21:12)
[2023-06-08] MEDS: THIAMINE HCL 100 MG TABLET (FP) PO SCH (21:12)
[2023-06-08] MEDS: MIRTAZAPINE 15 MG TABLET (FP) PO SCH (21:12)
[2023-06-09] MEDS: BICTEGRAV/EMTRICIT/TENOFOV (BIKTARVY) 50-200-25 MG TABLET PO SCH (07:16)
[2023-06-09] MEDS: valACYclovir HCL 500 MG TABLET (FP) PO SCH (09:23)
[2023-06-09] MEDS: ESCITALOPRAM OXALATE 10 MG TABLET PO SCH (09:23)
[2023-06-09] MEDS: LISINOPRIL 10 MG TABLET PO SCH (09:24)
[2023-06-09] MEDS: PRENATAL VITAMINS W/ FOLIC ACID TABLET (FP) PO SCH (09:24)
[2023-06-09] MEDS: HYDROCHLOROTHIAZIDE 25 MG TABLET (FP) PO SCH (09:24)
[2023-06-09] MEDS: BUPRENORPHINE/NALOXONE 2 MG/0.5 MG FILM PACKET SL SCH (09:24)
[2023-06-09] MEDS: cloNIDine HCL 0.1 MG TABLET PO PRN (21:22)
[2023-06-09] MEDS: MIRTAZAPINE 15 MG TABLET (FP) PO SCH (21:22)
[2023-06-09] MEDS: hydrOXYzine PAMOATE 25 MG CAPSULE (FP) PO PRN (21:23)
[2023-06-09] MEDS: MELATONIN 5 MG TABLETS PO SCH (21:23)
[2023-06-09] MEDS: THIAMINE HCL 100 MG TABLET (FP) PO SCH (21:23)
[2023-06-09] MEDS: ATORVASTATIN CA 40 MG TABLET (FP) PO SCH (21:23)
[2023-06-10] MEDS: BICTEGRAV/EMTRICIT/TENOFOV (BIKTARVY) 50-200-25 MG TABLET PO SCH (07:07)
[2023-06-10] MEDS ORDERED: IBUPROFEN 600 MG TABLET (FP) PO PRN (08:47)
[2023-06-10] MEDS ORDERED: METHOCARBAMOL 500 MG TABLET PO PRN (08:47)
[2023-06-10] MEDS ORDERED: POLYETHYLENE GLYCOL (HEALTHYLAX) 3350 17 GM PACKET PO PRN (08:47)
[2023-06-10] MEDS ORDERED: guaiFENesin 600 MG TABLET.ER (FP) PO PRN (08:47)
[2023-06-10] MEDS ORDERED: NALOXONE HCL (KLOXXADO) 8 MG SPRAY NS PRN (08:47)
[2023-06-10] MEDS ORDERED: MAG HYDROX/AL HYDROX/SIMETH 30 ML UNIT-DOSE CUP PO PRN (08:47)
[2023-06-10] MEDS ORDERED: ONDANSETRON *ODT* 4 MG TABLET SL PRN (08:47)
[2023-06-10] MEDS ORDERED: BENZOCAINE/MENTHOL (CHLORASEPTIC ) LOZENGE MM PRN (08:47)
[2023-06-10] MEDS ORDERED: LOPERAMIDE HCL 2 MG CAPSULE PO PRN (08:47)
[2023-06-10] MEDS ORDERED: BENZONATATE 200 MG CAPSULE PO PRN (08:47)
[2023-06-10] MEDS ORDERED: DICYCLOMINE HCL 10 MG CAPSULE PO PRN (08:47)
[2023-06-10] MEDS ORDERED: IBUPROFEN 400 MG TABLET (FP) PO PRN (08:47)
[2023-06-10] MEDS ORDERED: BISMUTH SUBSALICYLATE 524 MG/30 ML PO PRN (08:47)
[2023-06-10] MEDS ORDERED: hydrOXYzine PAMOATE 25 MG CAPSULE (FP) PO PRN (08:47)
[2023-06-10] MEDS ORDERED: ACETAMINOPHEN 325 MG TABLET (FP) PO PRN (08:47)
[2023-06-10] MEDS ORDERED: BUPRENORPHINE HCL 150 MCG, BUPRENORPHINE HCL 75 MCG BC PRN (08:47)
[2023-06-10] MEDS ORDERED: NALOXONE HCL 0.4 MG/ML VIAL IM PRN (08:47)
[2023-06-10] MEDS ORDERED: MAGNESIUM HYDROX 2400MG/30ML ORAL SUSPENSION 30 ML CUP PO PRN (08:47)
[2023-06-10] MEDS ORDERED: cloNIDine HCL 0.1 MG TABLET PO ONE (09:15)
[2023-06-10] MEDS ORDERED: BUPRENORPHINE HCL 150 MCG, BUPRENORPHINE HCL 75 MCG BC ONE (09:15)
[2023-06-10] MEDS: HYDROCHLOROTHIAZIDE 25 MG TABLET (FP) PO SCH (09:36)
[2023-06-10] MEDS: valACYclovir HCL 500 MG TABLET (FP) PO SCH (09:36)
[2023-06-10] MEDS: PRENATAL VITAMINS W/ FOLIC ACID TABLET (FP) PO SCH (09:36)
[2023-06-10] MEDS: ESCITALOPRAM OXALATE 10 MG TABLET PO SCH (09:36)
[2023-06-10] MEDS: LISINOPRIL 10 MG TABLET PO SCH (09:36)
[2023-06-10] MEDS: BUPRENORPHINE/NALOXONE 2 MG/0.5 MG FILM PACKET SL SCH (09:37)
[2023-06-10] MEDS: ATORVASTATIN CA 40 MG TABLET (FP) PO SCH (21:41)
[2023-06-10] MEDS: THIAMINE HCL 100 MG TABLET (FP) PO SCH ×2 (21:42→23:13)
[2023-06-10] MEDS: MIRTAZAPINE 15 MG TABLET (FP) PO SCH (21:42)
[2023-06-10] MEDS: MELATONIN 5 MG TABLETS PO SCH (21:42)
[2023-06-11] MEDS ORDERED: BUPRENORPHINE HCL 150 MCG, BUPRENORPHINE HCL 75 MCG BC PRN
[2023-06-11] MEDS: IBUPROFEN 600 MG TABLET (FP) PO PRN (01:00)
[2023-06-11] MEDS: BUPRENORPHINE HCL 150 MCG, BUPRENORPHINE HCL 75 MCG BC SCH ×2 (06:44→17:53)
[2023-06-11] MEDS: BICTEGRAV/EMTRICIT/TENOFOV (BIKTARVY) 50-200-25 MG TABLET PO SCH (07:06)
[2023-06-11] MEDS: valACYclovir HCL 500 MG TABLET (FP) PO SCH (10:14)
[2023-06-11] MEDS: PRENATAL VITAMINS W/ FOLIC ACID TABLET (FP) PO SCH (10:14)
[2023-06-11] MEDS: LISINOPRIL 10 MG TABLET PO SCH (10:14)
[2023-06-11] MEDS: ESCITALOPRAM OXALATE 10 MG TABLET PO SCH (10:14)
[2023-06-11] MEDS: HYDROCHLOROTHIAZIDE 25 MG TABLET (FP) PO SCH (10:14)
[2023-06-11] MEDS: ATORVASTATIN CA 40 MG TABLET (FP) PO SCH (21:32)
[2023-06-11] MEDS: cloNIDine HCL 0.1 MG TABLET PO PRN (21:32)
[2023-06-11] MEDS: MIRTAZAPINE 15 MG TABLET (FP) PO SCH (21:32)
[2023-06-11] MEDS: MELATONIN 5 MG TABLETS PO SCH (21:32)
[2023-06-11] MEDS: THIAMINE HCL 100 MG TABLET (FP) PO SCH ×2 (21:32→21:40)
[2023-06-11] MEDS: hydrOXYzine PAMOATE 25 MG CAPSULE (FP) PO PRN (21:34)
[2023-06-12] MEDS: BUPRENORPHINE HCL 450 MCG FILM BC SCH ×2 (06:32→17:21)
[2023-06-12] MEDS: BICTEGRAV/EMTRICIT/TENOFOV (BIKTARVY) 50-200-25 MG TABLET PO SCH (07:02)
[2023-06-12] MEDS: LISINOPRIL 10 MG TABLET PO SCH (10:01)
[2023-06-12] MEDS: PRENATAL VITAMINS W/ FOLIC ACID TABLET (FP) PO SCH (10:02)
[2023-06-12] MEDS: valACYclovir HCL 500 MG TABLET (FP) PO SCH (10:02)
[2023-06-12] MEDS: ESCITALOPRAM OXALATE 10 MG TABLET PO SCH (10:02)
[2023-06-12] MEDS: HYDROCHLOROTHIAZIDE 25 MG TABLET (FP) PO SCH (10:02)
[2023-06-12] MEDS: MIRTAZAPINE 15 MG TABLET (FP) PO SCH (21:31)
[2023-06-12] MEDS: THIAMINE HCL 100 MG TABLET (FP) PO SCH ×2 (21:31→21:33)
[2023-06-12] MEDS: MELATONIN 5 MG TABLETS PO SCH (21:31)
[2023-06-12] MEDS: cloNIDine HCL 0.1 MG TABLET PO PRN (21:31)
[2023-06-12] MEDS: hydrOXYzine PAMOATE 25 MG CAPSULE (FP) PO PRN (21:31)
[2023-06-12] MEDS: ATORVASTATIN CA 40 MG TABLET (FP) PO SCH (21:31)
[2023-06-13] MEDS: BUPRENORPHINE/NALOXONE 4 MG/1 MG FILM PACKET SL SCH ×2 (06:16→17:28)
[2023-06-13 07:13] VITALS: TEMP 97.3
[2023-06-13] MEDS: BICTEGRAV/EMTRICIT/TENOFOV (BIKTARVY) 50-200-25 MG TABLET PO SCH (07:15)
[2023-06-13] MEDS: PRENATAL VITAMINS W/ FOLIC ACID TABLET (FP) PO SCH (09:56)
[2023-06-13] MEDS: valACYclovir HCL 500 MG TABLET (FP) PO SCH (09:56)
[2023-06-13] MEDS: HYDROCHLOROTHIAZIDE 25 MG TABLET (FP) PO SCH (09:56)
[2023-06-13] MEDS: LISINOPRIL 10 MG TABLET PO SCH (09:56)
[2023-06-13] MEDS: ESCITALOPRAM OXALATE 10 MG TABLET PO SCH (09:56)
[2023-06-13] MEDS: cloNIDine HCL 0.1 MG TABLET PO PRN (21:13)
[2023-06-13] MEDS: hydrOXYzine PAMOATE 25 MG CAPSULE (FP) PO PRN (21:14)
[2023-06-13] MEDS: MELATONIN 5 MG TABLETS PO SCH (21:14)
[2023-06-13] MEDS: MIRTAZAPINE 15 MG TABLET (FP) PO SCH (21:14)
[2023-06-13] MEDS: THIAMINE HCL 100 MG TABLET (FP) PO SCH ×2 (21:14→23:22)
[2023-06-13] MEDS: ATORVASTATIN CA 40 MG TABLET (FP) PO SCH (21:14)
[2023-06-14] MEDS ORDERED: BUPRENORPHINE/NALOXONE 8 MG/2 MG FILM PACKET SL SCH ×2 (06:00→06:30)
[2023-06-14 07:00] VITALS: RESP 18
[2023-06-14] MEDS: BICTEGRAV/EMTRICIT/TENOFOV (BIKTARVY) 50-200-25 MG TABLET PO SCH (07:08)
[2023-06-14] MEDS: HYDROCHLOROTHIAZIDE 25 MG TABLET (FP) PO SCH (09:14)
[2023-06-14] MEDS: PRENATAL VITAMINS W/ FOLIC ACID TABLET (FP) PO SCH (09:14)
[2023-06-14] MEDS: LISINOPRIL 10 MG TABLET PO SCH (09:14)
[2023-06-14] MEDS: ESCITALOPRAM OXALATE 10 MG TABLET PO SCH (09:14)
[2023-06-14] MEDS: valACYclovir HCL 500 MG TABLET (FP) PO SCH (09:14)
[2023-06-14 09:18] VITALS: BP 109/68; PULSE 73
== END 2023-06-14 09:05 | disposition home or self-care (01) | DRG 773 ==
LOC: YASAS 17:15 → Y5N 17:21
PROVIDERS: ADMIT Allergy & Immunology; ATTEND Psychiatry & Neurology Pain Medicine
PROC: HZ2ZZZZ Detoxification Services for Substance Abuse Treatment (ICD-10-PCS; principal; 2023-06-03)
DX: F11.20 Opioid dependence, uncomplicated (principal); F13.20 Sedative, hypnotic or anxiolytic dependence, uncomplicated; F10.10 Alcohol abuse, uncomplicated; F17.210 Nicotine dependence, cigarettes, uncomplicated; F41.9 Anxiety disorder, unspecified; F32.A Depression, unspecified; F43.10 Post-traumatic stress disorder, unspecified; E78.5 Hyperlipidemia, unspecified; I10 Essential (primary) hypertension; Z86.11 Personal history of tuberculosis; Z86.19 Personal history of other infectious and parasitic diseases; Z87.438 Personal history of other diseases of male genital organs; Z88.0 Allergy status to penicillin

== ENCOUNTER 2023-07-23 13:41 | Inpatient (IN) | payer OTHER ==
[2023-07-23 14:41] VITALS: BMI 31.0
[2023-07-23] MEDS ORDERED: ACETAMINOPHEN 325 MG TABLET (FP) PO PRN (16:47)
[2023-07-23] MEDS ORDERED: cloNIDine HCL 0.1 MG TABLET PO ONE ×2 (16:47→19:45)
[2023-07-23] MEDS ORDERED: BUPRENORPHINE HCL 150 MCG, BUPRENORPHINE HCL 75 MCG BC ONE ×2 (16:47→19:45)
[2023-07-23] MEDS ORDERED: diazePAM 5 MG TABLET PO PRN (16:47)
[2023-07-23] MEDS ORDERED: POLYETHYLENE GLYCOL (HEALTHYLAX) 3350 17 GM PACKET PO PRN (16:47)
[2023-07-23] MEDS ORDERED: MAGNESIUM HYDROX 2400MG/30ML ORAL SUSPENSION 30 ML CUP PO PRN (16:47)
[2023-07-23] MEDS ORDERED: MAG HYDROX/AL HYDROX/SIMETH 30 ML UNIT-DOSE CUP PO PRN (16:47)
[2023-07-23] MEDS ORDERED: ONDANSETRON *ODT* 4 MG TABLET SL PRN (16:47)
[2023-07-23] MEDS ORDERED: BENZONATATE 200 MG CAPSULE PO PRN (16:47)
[2023-07-23] MEDS ORDERED: IBUPROFEN 400 MG TABLET (FP) PO PRN (16:47)
[2023-07-23] MEDS ORDERED: guaiFENesin 600 MG TABLET.ER (FP) PO PRN (16:47)
[2023-07-23] MEDS ORDERED: NALOXONE HCL 0.4 MG/ML VIAL IM PRN (16:47)
[2023-07-23] MEDS ORDERED: BENZOCAINE/MENTHOL (CHLORASEPTIC ) LOZENGE MM PRN (16:47)
[2023-07-23] MEDS ORDERED: LOPERAMIDE HCL 2 MG CAPSULE PO PRN (16:47)
[2023-07-23] MEDS ORDERED: IBUPROFEN 600 MG TABLET (FP) PO PRN (16:47)
[2023-07-23] MEDS ORDERED: BUPRENORPHINE HCL 150 MCG, BUPRENORPHINE HCL 75 MCG BC PRN (16:47)
[2023-07-23] MEDS ORDERED: BISMUTH SUBSALICYLATE 524 MG/30 ML PO PRN (16:47)
[2023-07-23] MEDS ORDERED: NALOXONE HCL (KLOXXADO) 8 MG SPRAY NS PRN (16:47)
[2023-07-23] MEDS: NICOTINE 14 MG/24 HOURS TOPICAL PATCH TD SCH (19:55)
[2023-07-23] MEDS: PRENATAL VITAMINS W/ FOLIC ACID TABLET (FP) PO SCH (19:55)
[2023-07-23] MEDS ORDERED: cloNIDine HCL 0.1 MG TABLET PO PRN (20:47)
[2023-07-23] MEDS: METHOCARBAMOL 500 MG TABLET PO PRN (22:19)
[2023-07-23] MEDS: MELATONIN 5 MG TABLETS PO SCH (22:19)
[2023-07-23] MEDS: THIAMINE HCL 100 MG TABLET (FP) PO SCH (22:19)
[2023-07-24] MEDS ORDERED: BUPRENORPHINE HCL 150 MCG, BUPRENORPHINE HCL 75 MCG BC PRN
[2023-07-24] MEDS: BUPRENORPHINE HCL 150 MCG, BUPRENORPHINE HCL 75 MCG BC SCH ×2 (05:34→17:20)
[2023-07-24 10:03] LABS: HEMATOCRIT 39.5 % (35.4-49); HEMOGLOBIN 13.7 GM/dL (11.7-16.9); MCHC 34.6 g/dl (32.0-35.9); MEAN CELL VOLUME 95.4 fl (80-96); MEAN PLT VOLUME 8.7 fl (7.5-11.1); PLATELET COUNT 188 10^3/uL (134-434); RBC 4.14 M/mm3 (4.00-5.60); RDW 13.6 % (11.9-15.9); WHITE BLOOD COUNT 6.7 K/mm3 (4.0-10.0)
[2023-07-24] MEDS: valACYclovir HCL 500 MG TABLET (FP) PO SCH (10:22)
[2023-07-24] MEDS: BICTEGRAV/EMTRICIT/TENOFOV (BIKTARVY) 50-200-25 MG TABLET PO SCH (10:22)
[2023-07-24] MEDS: LISINOPRIL 10 MG TABLET PO SCH (10:22)
[2023-07-24] MEDS: diazePAM 5 MG TABLET PO SCH ×3 (10:24→22:05)
[2023-07-24] MEDS: NICOTINE 14 MG/24 HOURS TOPICAL PATCH TD SCH (10:25)
[2023-07-24] MEDS: PRENATAL VITAMINS W/ FOLIC ACID TABLET (FP) PO SCH (10:25)
[2023-07-24 10:33] LABS: POTASSIUM 4.1 mmol/L (3.5-5.1)
[2023-07-24 10:39] LABS: ALBUMIN 3.3 g/dl (3.4-5.0)
[2023-07-24 10:42] LABS: CREATININE 0.8 mg/dL (0.55-1.3)
[2023-07-24 10:43] LABS: BLOOD UREA NITROGEN 16.5 mg/dL (7-18)
[2023-07-24 10:44] LABS: BILIRUBIN,TOTAL 0.7 mg/dL (0.2-1); TOT PROT 6.8 g/dl (6.4-8.2)
[2023-07-24] MEDS: hydrOXYzine PAMOATE 25 MG CAPSULE (FP) PO PRN (22:04)
[2023-07-24] MEDS: MELATONIN 5 MG TABLETS PO SCH (22:04)
[2023-07-24] MEDS: METHOCARBAMOL 500 MG TABLET PO PRN (22:04)
[2023-07-24] MEDS: THIAMINE HCL 100 MG TABLET (FP) PO SCH (22:04)
[2023-07-24] MEDS: MIRTAZAPINE 15 MG TABLET (FP) PO SCH (22:07)
[2023-07-24] MEDS: ATORVASTATIN CA 40 MG TABLET (FP) PO SCH (22:07)
[2023-07-25] MEDS: diazePAM 5 MG TABLET PO SCH ×4 (05:33→22:14)
[2023-07-25] MEDS: BUPRENORPHINE HCL 450 MCG FILM BC SCH ×2 (05:34→17:14)
[2023-07-25] MEDS: BICTEGRAV/EMTRICIT/TENOFOV (BIKTARVY) 50-200-25 MG TABLET PO SCH (07:36)
[2023-07-25] MEDS: DICYCLOMINE HCL 10 MG CAPSULE PO PRN ×2 (09:38→22:13)
[2023-07-25] MEDS: PRENATAL VITAMINS W/ FOLIC ACID TABLET (FP) PO SCH (10:14)
[2023-07-25] MEDS: LISINOPRIL 10 MG TABLET PO SCH (10:14)
[2023-07-25] MEDS: ESCITALOPRAM OXALATE 10 MG TABLET PO SCH (10:14)
[2023-07-25] MEDS: valACYclovir HCL 500 MG TABLET (FP) PO SCH (10:14)
[2023-07-25] MEDS: NICOTINE 14 MG/24 HOURS TOPICAL PATCH TD SCH (10:16)
[2023-07-25] MEDS: MELATONIN 5 MG TABLETS PO SCH (22:12)
[2023-07-25] MEDS: ATORVASTATIN CA 40 MG TABLET (FP) PO SCH (22:13)
[2023-07-25] MEDS: THIAMINE HCL 100 MG TABLET (FP) PO SCH (22:13)
[2023-07-25] MEDS: METHOCARBAMOL 500 MG TABLET PO PRN (22:13)
[2023-07-25] MEDS: MIRTAZAPINE 15 MG TABLET (FP) PO SCH (22:13)
[2023-07-26] MEDS: diazePAM 5 MG TABLET PO SCH ×3 (05:24→22:08)
[2023-07-26] MEDS: BUPRENORPHINE/NALOXONE 4 MG/1 MG FILM PACKET SL SCH ×2 (06:43→17:27)
[2023-07-26] MEDS: BICTEGRAV/EMTRICIT/TENOFOV (BIKTARVY) 50-200-25 MG TABLET PO SCH (07:54)
[2023-07-26] MEDS: NICOTINE 14 MG/24 HOURS TOPICAL PATCH TD SCH (10:24)
[2023-07-26] MEDS: PRENATAL VITAMINS W/ FOLIC ACID TABLET (FP) PO SCH (10:24)
[2023-07-26] MEDS: LISINOPRIL 10 MG TABLET PO SCH (10:25)
[2023-07-26] MEDS: diazePAM 5 MG TABLET PO PRN ×2 (10:25→18:42)
[2023-07-26] MEDS: ESCITALOPRAM OXALATE 10 MG TABLET PO SCH (10:25)
[2023-07-26] MEDS: valACYclovir HCL 500 MG TABLET (FP) PO SCH (10:25)
[2023-07-26] MEDS ORDERED: TRIMETHOBENZAMIDE HCL 200MG/2ML INJ IM ONE (18:59)
[2023-07-26] MEDS: GABAPENTIN 100 MG CAPSULE PO SCH (21:19)
[2023-07-26] MEDS: ATORVASTATIN CA 40 MG TABLET (FP) PO SCH (21:19)
[2023-07-26] MEDS: THIAMINE HCL 100 MG TABLET (FP) PO SCH (21:19)
[2023-07-26] MEDS: MELATONIN 5 MG TABLETS PO SCH (21:19)
[2023-07-26] MEDS: MIRTAZAPINE 15 MG TABLET (FP) PO SCH (21:19)
[2023-07-26] MEDS: METHOCARBAMOL 500 MG TABLET PO PRN (21:21)
[2023-07-27] MEDS ORDERED: BUPRENORPHINE/NALOXONE 8 MG/2 MG FILM PACKET SL ONE (06:00)
[2023-07-27] MEDS: GABAPENTIN 100 MG CAPSULE PO SCH ×3 (06:24→22:15)
[2023-07-27] MEDS: diazePAM 5 MG TABLET PO SCH ×2 (06:24→17:10)
[2023-07-27] MEDS: BICTEGRAV/EMTRICIT/TENOFOV (BIKTARVY) 50-200-25 MG TABLET PO SCH (07:07)
[2023-07-27] MEDS: NICOTINE 14 MG/24 HOURS TOPICAL PATCH TD SCH (10:18)
[2023-07-27] MEDS: LISINOPRIL 10 MG TABLET PO SCH (10:18)
[2023-07-27] MEDS: ESCITALOPRAM OXALATE 10 MG TABLET PO SCH (10:18)
[2023-07-27] MEDS: PRENATAL VITAMINS W/ FOLIC ACID TABLET (FP) PO SCH (10:18)
[2023-07-27] MEDS: valACYclovir HCL 500 MG TABLET (FP) PO SCH (10:18)
[2023-07-27] MEDS: MIRTAZAPINE 15 MG TABLET (FP) PO SCH (22:14)
[2023-07-27] MEDS: MELATONIN 5 MG TABLETS PO SCH (22:14)
[2023-07-27] MEDS: THIAMINE HCL 100 MG TABLET (FP) PO SCH (22:15)
[2023-07-27] MEDS: hydrOXYzine PAMOATE 25 MG CAPSULE (FP) PO PRN (22:15)
[2023-07-27] MEDS: METHOCARBAMOL 500 MG TABLET PO PRN (22:15)
[2023-07-27] MEDS: ATORVASTATIN CA 40 MG TABLET (FP) PO SCH (22:15)
[2023-07-28] MEDS: GABAPENTIN 100 MG CAPSULE PO SCH (05:17)
[2023-07-28] MEDS ORDERED: diazePAM 5 MG TABLET PO ONE (06:00)
[2023-07-28 06:07] VITALS: PULSE 62
[2023-07-28] MEDS: BICTEGRAV/EMTRICIT/TENOFOV (BIKTARVY) 50-200-25 MG TABLET PO SCH (07:06)
[2023-07-28 08:30] VITALS: BP 141/87; RESP 17; TEMP 97.7
[2023-07-28] MEDS: PRENATAL VITAMINS W/ FOLIC ACID TABLET (FP) PO SCH (10:04)
[2023-07-28] MEDS: valACYclovir HCL 500 MG TABLET (FP) PO SCH (10:05)
[2023-07-28] MEDS: NICOTINE 14 MG/24 HOURS TOPICAL PATCH TD SCH (10:05)
[2023-07-28] MEDS: ESCITALOPRAM OXALATE 10 MG TABLET PO SCH (10:05)
[2023-07-28] MEDS: LISINOPRIL 10 MG TABLET PO SCH (10:05)
== END 2023-07-28 11:35 | disposition other institution (70) | DRG 773 ==
LOC: YASAS 13:41 → Y3N 17:44
PROVIDERS: ADMIT Allergy & Immunology; ATTEND Allergy & Immunology
PROC: HZ2ZZZZ Detoxification Services for Substance Abuse Treatment (ICD-10-PCS; principal; 2023-07-23)
DX: F11.23 Opioid dependence with withdrawal (principal); F10.230 Alcohol dependence with withdrawal, uncomplicated; F13.20 Sedative, hypnotic or anxiolytic dependence, uncomplicated; F17.210 Nicotine dependence, cigarettes, uncomplicated; F19.24 Other psychoactive substance dependence with psychoactive substance-induced mood disorder; Z21 Asymptomatic human immunodeficiency virus [HIV] infection status; G47.00 Insomnia, unspecified; I10 Essential (primary) hypertension; E78.2 Mixed hyperlipidemia; R76.8 Other specified abnormal immunological findings in serum; Z86.19 Personal history of other infectious and parasitic diseases; Z86.59 Personal history of other mental and behavioral disorders; Z88.0 Allergy status to penicillin
CPT/HCPCS: 36415; 80053; 85027; 86593; 86780; 87635; 87811; Q0162

== ENCOUNTER 2023-09-28 12:56 | Inpatient (IN) | payer OTHER ==
[2023-09-28 13:41] VITALS: BMI 31.6
[2023-09-28] MEDS ORDERED: guaiFENesin 600 MG TABLET.ER (FP) PO PRN (18:12)
[2023-09-28] MEDS ORDERED: MAGNESIUM HYDROX 2400MG/30ML ORAL SUSPENSION 30 ML CUP PO PRN (18:12)
[2023-09-28] MEDS ORDERED: BENZONATATE 200 MG CAPSULE PO PRN (18:12)
[2023-09-28] MEDS ORDERED: DICYCLOMINE HCL 10 MG CAPSULE PO PRN (18:12)
[2023-09-28] MEDS ORDERED: cloNIDine HCL 0.1 MG TABLET PO PRN (18:12)
[2023-09-28] MEDS ORDERED: METHOCARBAMOL 500 MG TABLET PO PRN (18:12)
[2023-09-28] MEDS ORDERED: POLYETHYLENE GLYCOL (HEALTHYLAX) 3350 17 GM PACKET PO PRN (18:12)
[2023-09-28] MEDS ORDERED: IBUPROFEN 400 MG TABLET (FP) PO PRN (18:12)
[2023-09-28] MEDS ORDERED: BISMUTH SUBSALICYLATE 524 MG/30 ML PO PRN (18:12)
[2023-09-28] MEDS ORDERED: IBUPROFEN 600 MG TABLET (FP) PO PRN (18:12)
[2023-09-28] MEDS ORDERED: hydrOXYzine PAMOATE 25 MG CAPSULE (FP) PO PRN (18:12)
[2023-09-28] MEDS ORDERED: ONDANSETRON *ODT* 4 MG TABLET SL PRN (18:12)
[2023-09-28] MEDS ORDERED: LOPERAMIDE HCL 2 MG CAPSULE PO PRN (18:12)
[2023-09-28] MEDS ORDERED: ACETAMINOPHEN 325 MG TABLET (FP) PO PRN (18:12)
[2023-09-28] MEDS ORDERED: NALOXONE HCL 0.4 MG/ML VIAL IM PRN (18:12)
[2023-09-28] MEDS ORDERED: NALOXONE HCL (KLOXXADO) 8 MG SPRAY NS PRN (18:12)
[2023-09-28] MEDS ORDERED: BENZOCAINE/MENTHOL (CHLORASEPTIC ) LOZENGE MM PRN (18:12)
[2023-09-28] MEDS: methaDONE HCL 10 MG TABLET (FOR DETOX USE ONLY) PO ONE (19:02)
[2023-09-28] MEDS: MELATONIN 5 MG TABLETS PO SCH (22:18)
[2023-09-28] MEDS: diazePAM 5 MG TABLET PO SCH (22:18)
[2023-09-28] MEDS: ATORVASTATIN CA 40 MG TABLET (FP) PO SCH (22:19)
[2023-09-28] MEDS: THIAMINE HCL 100 MG TABLET (FP) PO SCH (22:19)
[2023-09-29] MEDS ORDERED: ESCITALOPRAM OXALATE 10 MG TABLET PO SCH (10:00)
[2023-09-29] MEDS: HYDROCHLOROTHIAZIDE 12.5 MG CAPSULE (FP) PO SCH (10:07)
[2023-09-29] MEDS: PRENATAL VITAMINS W/ FOLIC ACID TABLET (FP) PO SCH (10:07)
[2023-09-29] MEDS: BICTEGRAV/EMTRICIT/TENOFOV (BIKTARVY) 50-200-25 MG TABLET PO SCH (10:07)
[2023-09-29] MEDS: valACYclovir HCL 500 MG TABLET (FP) PO SCH (10:08)
[2023-09-29] MEDS: LISINOPRIL 10 MG TABLET PO SCH (10:08)
[2023-09-29] MEDS: FUROSEMIDE 20 MG TABLET (FP) PO SCH (10:08)
[2023-09-29 10:34] LABS: PH,URINE 6.5 (5.0-8.0); URINE APPEARANCE CLEAR; URINE BILIRUBIN NEGATIVE (NEGATIVE); URINE COLOR YELLOW; URINE GLUCOSE (UA) NEGATIVE (NEGATIVE); URINE KETONE TRACE (NEGATIVE); URINE LEUK ESTERASE NEGATIVE (NEGATIVE); URINE NITRITE NEGATIVE (NEGATIVE); URINE PROTEIN NEGATIVE (NEGATIVE)
[2023-09-29 10:37] LABS: CHLORIDE 103 mmol/L (98-107); HEMATOCRIT 44.6 % (35.4-49); HEMOGLOBIN 14.7 GM/dL (11.7-16.9); MCH 31.9 pg (25.7-33.7); MEAN CELL VOLUME 96.7 fl (80-96); MEAN PLT VOLUME 8.7 fl (7.5-11.1); PLATELET COUNT 226 10^3/uL (134-434); POTASSIUM 4.4 mmol/L (3.5-5.1); RBC 4.61 M/mm3 (4.00-5.60); RDW 13.9 % (11.9-15.9); SODIUM 138 mmol/L (136-145); WHITE BLOOD COUNT 8.6 K/mm3 (4.0-10.0)
[2023-09-29 10:40] LABS: CALCIUM 9.3 mg/dL (8.5-10.1)
[2023-09-29 10:41] LABS: ALBUMIN 3.5 g/dl (3.4-5.0); ANION GAP 3 mmol/L (4-13); CO2 32 mmol/L (21-32); GLUCOSE,RANDOM 107 mg/dL (74-106)
[2023-09-29 10:44] LABS: CREATININE 0.8 mg/dL (0.55-1.3); SGOT/AST 27 U/L (15-37); SGPT/ALT 24 U/L (13-61)
[2023-09-29 10:45] LABS: TOT PROT 7.3 g/dl (6.4-8.2)
[2023-09-29 10:46] LABS: BILIRUBIN,TOTAL 0.6 mg/dL (0.2-1)
[2023-09-29 10:47] LABS: ALK PHOS 118 U/L (45-117)
[2023-09-29] MEDS: GABAPENTIN 300 MG CAPSULE PO SCH (10:55)
[2023-09-29] MEDS: amLODIPine BESYLATE 5 MG TABLET (FP) PO SCH (15:34)
[2023-09-29] MEDS: LACTULOSE 20 GM/30 ML UDC (FOR ORAL USE ONLY) PO SCH (17:14)
[2023-09-29] MEDS ORDERED: MIRTAZAPINE 15 MG TABLET (FP) PO SCH (22:00)
[2023-09-30] MEDS: diazePAM 5 MG TABLET PO SCH (05:50)
[2023-09-30] MEDS: methaDONE HCL 10 MG TABLET (FOR DETOX USE ONLY) PO ONE (09:51)
[2023-09-30] MEDS: MAG HYDROX/AL HYDROX/SIMETH 30 ML UNIT-DOSE CUP PO PRN (10:30)
[2023-09-30] MEDS: PANTOPRAZOLE 40 MG TABLET PO SCH (14:19)
[2023-09-30] MEDS: diazePAM 5 MG TABLET PO PRN (17:43)
[2023-10-01] MEDS: diazePAM 5 MG TABLET PO SCH (05:46)
[2023-10-02] MEDS: diazePAM 5 MG TABLET PO ONE (05:48)
[2023-10-02] MEDS: methaDONE HCL 10 MG TABLET (FOR DETOX USE ONLY) PO ONE (09:38)
[2023-10-03 09:40] VITALS: BP 150/82; PULSE 78; RESP 16; TEMP 95.7
== END 2023-10-03 10:21 | disposition home or self-care (01) | DRG 773 ==
LOC: YASAS 12:56 → Y6N 16:57
PROVIDERS: ADMIT Allergy & Immunology; ATTEND Surgery
PROC: HZ2ZZZZ Detoxification Services for Substance Abuse Treatment (ICD-10-PCS; principal; 2023-09-28)
DX: F11.23 Opioid dependence with withdrawal (principal); F10.230 Alcohol dependence with withdrawal, uncomplicated; F17.210 Nicotine dependence, cigarettes, uncomplicated; F32.A Depression, unspecified; Z21 Asymptomatic human immunodeficiency virus [HIV] infection status; I10 Essential (primary) hypertension; E78.2 Mixed hyperlipidemia; K21.9 Gastro-esophageal reflux disease without esophagitis; A60.00 Herpesviral infection of urogenital system, unspecified; M79.2 Neuralgia and neuritis, unspecified; Z86.19 Personal history of other infectious and parasitic diseases; Z86.11 Personal history of tuberculosis; Z88.0 Allergy status to penicillin
CPT/HCPCS: 36415; 80053; 80307; 81003; 82140; 85027; 86593; 86780; 93005; 93010